=== PATIENT | female | born 1955 | race Caucasian/White ===

== ENCOUNTER → 2018-06-15 | Outpatient (CLI) | payer BC ==
--- NOTE | 2018-06-15 21:57 | NM ---
EXAMINATION TYPE: NM hepatobiliary w EF DATE OF EXAM: 06/15/2018 COMPARISON: Limited abdominal ultrasound July 24, 2017 HISTORY: Right upper quadrant pain and tenderness. Abdominal pain for 5 months with diminished appeti te, bloatedness, and nausea per patient. TECHNIQUE: After the intravenous administration of 5.1 mCi Tc 99m Mebrofenin hepatobiliary scintigrap hy is performed. Immediate images post injection. FINDINGS: There is satisfactory initial accumulation of tracer by the liver. The gallbladder is eventually vis ualized after 90 minutes. The small bowel activity is noted within 20 minutes. At 90 minutes 8 ounc es of oral ensure plus is given to mimic CCK and gallbladder ejection fraction is calculated at 88 %, not deviated from the normal range. Therefore there is no scintigraphic evidence of cystic or commo n bile duct obstruction to suggest acute cholecystitis or gallbladder dyskinesia. IMPRESSION: Ejection fraction is not 88%, not diminished from the normal range.
== END | disposition home or self-care (01) ==
LOC: RADNMMAIN 14:39
PROVIDERS: ATTEND Family Medicine
DX: R10.811 Right upper quadrant abdominal tenderness (principal)
CPT/HCPCS: 78226; A9537

== ENCOUNTER → 2020-07-28 | Outpatient (CLI) | payer BC ==
--- NOTE | 2020-07-28 11:42 | MR ---
EXAMINATION TYPE: MR brain/orbits wo con DATE OF EXAM: 07/28/2020 COMPARISON: CTA head June 20, 2015 HISTORY: 4th nerve palsy, double vision, krause TECHNIQUE: Multiplanar, multisequence imaging of the brain and brainstem as well as orbits are all pe rformed without IV contrast. Patient refused contrast as ordered due to prior reaction. FINDINGS: Diffusion weighted images demonstrate no evidence of a recent infarct or other diffusion abnormality. There is no worrisome extra-axial fluid collection. Mild ventricular and sulcal prominence. Scattered foci of T2 hyperintensity are seen throughout the white matter bilaterally. Approximately 50-70 smal l scattered lesions. Lesions are nonspecific in appearance and distribution. Midline structures demonstrate normal morphology. The craniocervical junction appears within normal limits. Normal vascular flow voids are present. Orbital images show lobes appear symmetric and felt within normal limits. Intraconal fat is preserved bilaterally. Rectus muscles are symmetric in size. Suprasellar cistern is maintained. Paranasal sinu ses are grossly clear. IMPRESSION: Moderate to borderline severe nonspecific white matter changes. Findings favored on basis of product of chronic small vessel ischemic change in patient of this age. Other etiologies not excl uded.
== END | disposition home or self-care (01) ==
LOC: RADMRIMAIN 06:08
PROVIDERS: ATTEND Ophthalmology
DX: R90.82 White matter disease, unspecified (principal); I67.82 Cerebral ischemia
CPT/HCPCS: 70540; 70551

== ENCOUNTER → 2022-02-27 | Outpatient (CLI) | payer BC ==
--- NOTE | 2022-02-27 11:10 | CA ---
Stress Echo Report Torrie Lofton Age: 66 Gender: F : 1955 Exam Date: 02/27/2022 10:20 Exam Location: [facility] Echo Ht (in): 60 Wt (lb): 158 Ordering Physician: Pricila Jc DO Referring Physician: Naomie Trujillo Coordinator Of Library Services: Riddhi Marsh RDCS Technologist Procedure CPT: Indication: R07.89 chest pain ICD-9 Codes: Rhythm: Patient History: Short of breath, Chest pain, palpitations Cardiac Medications: Atenolol, xanax, Medications in past 24 hours: Contrast: Stress Results Protocol: Silver Total dose(mL): Exercise Duration (min:sec): 6:[address] Depression (mm): Angina Score: Cristobal Score: METS: 7.1 Resting HR: 93 Resting BP: 144 / 96 Peak HR: 135 Peak BP: 176 / 88 Max Predicted HR: 156 87 % Max Predicted HR Target HR: 133 Double Product: [id number] Stress Summary: BP Response: Reason for Termination: Reached target heart rate or work-load and Hip pain Cardiac Symptoms: Test terminated after reaching target heart rate (85% max predicted) ECG Analysis Resting ECG: Sinus rhythm, normal VT interval and QRS duration Stress ECG: Mild J-point depression with upsloping segments nondiagnostic for ischemia Arrhythmia: None Echo Analysis Resting Echo: Normal left wall thickness and function Peak Echo Analysis: Augmentation wall motion and thickening in all segments MEASUREMENTS (Male/Female) Normal Values CONCLUSIONS #1. Negative stress test. #2. Negative stress echo Dr. Nima Armendariz MD (Electronically Signed) Final Date: 27 February 2022 11:10
== END | disposition home or self-care (01) ==
LOC: RADNMMAIN 09:37
PROVIDERS: ATTEND Family Medicine
DX: R07.89 Other chest pain (principal)
CPT/HCPCS: 93351

== ENCOUNTER → 2024-05-12 | Outpatient (CLI) | payer BC ==
--- NOTE | 2024-05-31 18:14 | MM ---
Reason for Exam: Screening (asymptomatic). Last mammogram was performed 13 year(s) and 0 month(s) ago. Patient History: Menarche at age 14. First Full-Term at age 20. Postmenopausal. Bilateral Benign Core Biopsy. Sister had breast cancer under age 50. Mother had breast cancer under age 50. Risk Values: Cee 5 year model risk: 9.3%. NCI Lifetime model risk: 29.6%. Prior Study Comparison: 04/26/2003 Bilateral Screening Mammogram, [facility]. 08/24/2004 Bilateral Screening Mammogram, [facility]. 05/21/2011 Bilateral Diagnostic Mammogram, [facility]. Tissue Density: The breasts are heterogeneously dense, which may obscure small masses. Findings: Analyzed By CAD. Left cc view shows possible underlying nodularity central aspect at a middle depth and inner aspect middle to posterior depth for which further evaluation is recommended. On the left MLO view, possible obscured distortion superiorly at a middle depth and nodularity inferiorly. Further evaluation recommended. Otherwise, no suspicious microcalcification or other discrete abnormality is seen. Overall Assessment: Incomplete: need additional imaging evaluation, BI-RAD 0 Management: Special View Mammogram of the left breast. Diagnostic Breast Ultrasound of the left breast. Additional views left breast to include spot 3-D CC, 3-D CC rolled, spot 3-D MLO, and 3-D lateral views. Proceed with whole left breast ultrasound given patient's risk scores. [facility] will attempt to contact patient to return for supplemental views and ultrasound if indicated. SEE NOTE BELOW IN REGARDS TO PATIENT'S INCREASED 5 YEAR CEE SCORE AND INCREASED LIFETIME RISK SCORE: 1. A Cee score greater than 3% is considered moderate risk. If this is the case, consider specialist referral to assess eligibility for a risk reducing agent. 2. If overall lifetime risk for the development of breast cancer is 20% or higher, the patient may qualify for future screening with alternating mammogram and breast MRI. Electronically signed and approved by: Romero Mckeon M.D. Radiologist
== END | disposition home or self-care (01) ==
LOC: RADMAMWWP 18:03
PROVIDERS: ATTEND Family Medicine
DX: Z12.31 Encounter for screening mammogram for malignant neoplasm of breast (principal); R92.333 Mammographic heterogeneous density, bilateral breasts; Z78.0 Asymptomatic menopausal state; Z80.3 Family history of malignant neoplasm of breast
CPT/HCPCS: 77063; 77067

== ENCOUNTER → 2024-06-07 | Outpatient (CLI) | payer BC ==
--- NOTE | 2024-06-07 10:19 | MM ---
Reason for Exam: Additional evaluation requested from abnormal screening. Last screening mammogram was performed less than 1 month ago. Patient History: Menarche at age 14. First Full-Term at age 20. Postmenopausal. Bilateral Benign Core Biopsy. Sister had breast cancer under age 50. Mother had breast cancer under age 50. Risk Values: Shari 5 year model risk: 9.3%. NCI Lifetime model risk: 29.6%. Prior Study Comparison: 08/24/2004 Bilateral Screening Mammogram, [facility]. 05/21/2011 Bilateral Diagnostic Mammogram, [facility]. 05/12/2024 Bilateral MG 3D screening mammo w/cad, [facility]. Tissue Density: Left: The breasts are extremely dense, which lowers the sensitivity of mammography. Findings: Analyzed By CAD. Pattern appears stable No discrete masses persistent distortion evident within the left breast on compression views were medial lateral view. No suspicious groups of microcalcifications, spiculated or lobular masses, architectural distortion or other secondary signs of malignancy are mammographically apparent. Overall Assessment: Probably benign, BI-RAD 3 Management: Diagnostic Mammogram of the left breast in 6 months. A negative mammogram report should not preclude additional follow up of suspicious palpable abnormalities. Patient should continue monthly self breast exam. A clinical breast exam by your physician is recommended on an annual basis and results should be correlated with mammographic findings. Note on Shari scores and lifetime risk: 1. A Shari score greater than 3% is considered moderate risk. If this is the case, consider specialist referral to assess eligibility for a risk reducing agent. 2. If overall lifetime risk for the development of breast cancer is 20% or higher, the patient may qualify for future screening with alternating mammogram and breast MRI. [facility], , 06/07/2024 10:15 AM. Electronically signed and approved by: Omid White D.O. Radiologis
== END | disposition home or self-care (01) ==
LOC: RADMAMWWP 09:55
PROVIDERS: ATTEND Family Medicine
DX: R92.8 Other abnormal and inconclusive findings on diagnostic imaging of breast
CPT/HCPCS: 77061; 77065